=== PATIENT | male | born 1995 | race Caucasian/White ===

== ENCOUNTER 2022-12-22 11:43 | Outpatient (REF) | payer OTHER, SELFPAY ==
[2022-12-22 13:51] LABS: MANUAL DIFF FLAG NO
[2022-12-22 14:05] LABS: Basophils Percent Auto 0.5 % (0-2); Eosinophils Absolute Auto 0.2 X10*3/uL (0.0-0.4); Eosinophils Percent Auto 2.4 % (0-4); Hematocrit 50.2 % (42.0-52.0); Hemoglobin 16.5 g/dl (14.0-18.0); Imm Gran Abs Auto 0.02 X10*3/uL (0.00-0.03); Imm Gran Pct Auto 0.3 % (0.0-0.4); Lymphocytes Absolute Auto 1.5 X10*3/uL (1.2-4.9); Lymphocytes Percent Auto 23.3 % (20-40); Mean Corpuscular HGB Conc 32.9 g/dl (31.0-36.0); Mean Corpuscular Hemoglobin 28.2 pg (27.0-33.0); Mean Corpuscular Volume 85.7 fL (80.0-98.0); Mean Platelet Volume 8.7 fL (9.4-12.4); Monocytes Absolute Auto 0.5 X10*3/uL (0.1-1.2); Monocytes Percent Auto 7.3 % (2-11); Neutrophils Absolute Auto 4.2 x10*3/uL (2.0-8.3); Neutrophils Percent Auto 66.2 % (45-73); Platelet Count 297 X10*3/uL (160-400); Red Blood Count 5.86 X10*6/uL (4.60-5.80); Red Cell Distribution Width 12.2 % (11.0-16.0); White Blood Count 6.3 X10*3/uL (4.8-10.8)
[2022-12-22 14:08] LABS: Appearance Urine Clear; Color Urine Yellow; Glucose Urine UA Negative (Negative); Leukocyte Esterase Urine Negative (Negative); Nitrite Urine Negative (Negative); PH 6.5 (5.0-9.0); Urine Blood Negative (Negative); Urine Ketones Negative (Negative); Urine Protein Negative (Neg-Trace)
[2022-12-22 14:42] LABS: Alanine Aminotransferase 14 U/L (0-40); Albumin Level 4.5 g/dL (3.5-5.0); Alkaline Phosphatase 118 U/L (39-117); Anion Gap 13 (12-20); Aspartate Amino Transferase 16 U/L (5-37); Bilirubin Total 0.6 mg/dL (0.0-1.0); Blood Urea Nitrogen 13 mg/dL (9-16); Calcium 9.6 mg/dL (8.4-10.2); Carbon Dioxide 27 mmol/L (22-29); Chloride 106 mmol/L (96-108); Cholesterol 161 mg/dL; Estimated Glomerular Filt Rate > 60; Glucose Fasting 88 mg/dL (60-99); HDL Cholesterol 50 mg/dL; LDL Cholesterol Calculated 101 mg/dl; Potassium 4.8 mmol/L (3.3-5.1); Sodium 141 mmol/L (135-145); Total Protein 7.4 g/dL (6.5-8.0); Triglycerides 52 mg/dL
[2022-12-22 14:59] LABS: TSH reflex Free T4 0.14 uIU/mL (0.32-4.0)
[2022-12-22 15:40] LABS: Free T4 (Free Thyroxine) 0.93 ng/dL (0.71-1.85)
== END 2022-12-22 11:44 | disposition home or self-care (01) ==
LOC: HO.HMGCLDS 11:43
PROVIDERS: PCP Internal Medicine; Visit Provider Internal Medicine
DX: Z00.01 Encounter for general adult medical examination with abnormal findings (principal); F41.1 Generalized anxiety disorder; Z13.0 Encounter for screening for diseases of the blood and blood-forming organs and certain disorders involving the immune mechanism; Z13.29 Encounter for screening for other suspected endocrine disorder; Z83.49 Family history of other endocrine, nutritional and metabolic diseases
CPT/HCPCS: 36415; 80053; 80061; 81003; 84439; 84443; 85025

== ENCOUNTER 2023-01-19 12:29 | Outpatient (REF) | payer OTHER, SELFPAY ==
[2023-01-19 15:09] LABS: TSH reflex Free T4 0.37 uIU/mL (0.32-4.0)
[2023-01-26 08:32] LABS: Thyroglobulin Antibodies <1
== END 2023-01-19 12:30 | disposition home or self-care (01) ==
LOC: HO.HMGCLDS 12:29
PROVIDERS: PCP Internal Medicine; Visit Provider Internal Medicine
DX: R94.6 Abnormal results of thyroid function studies (principal)
CPT/HCPCS: 36415; 84443; 86800

== ENCOUNTER 2023-12-28 10:39 | Outpatient (AMB) | payer BC, SELFPAY ==
[2023-12-28 10:41] VITALS: BP 118/70; PULSE 68; O2SAT 98; BMI 26.3
--- NOTE | 2023-12-28 10:41 | A.OFFPC_ITS ---
Vital Signs 12/28/23 10:41 Height 5 ft 7 in Weight 168 lb 2 oz BMI 26.3 BP 118/70 Blood Pressure Location Lt brachial Position Sitting Pulse 68 Pulse Source Pulse Oximeter Pulse Oximetry (%) 98 Oxygen Delivery Method Room Air Intake Visit Reasons: PE Computer Equipment Installer Required: No Accompanied by: Self / Same As Patient Allergies No Known Allergies Allergy (Verified 12/28/23 10:41) Medication List - Last Reconciled 12/28/23 by Kellie Duenas MD alprazolam 0.25 mg PO DAILY PRN fluoxetine 20 mg PO DAILY Tobacco use date assessed: 12/28/23 Dental Screening Dental Screen Date: 12/28/23 Did you have a dental visit in the last 12 months?: Yes Did you have a dental problem in the last 6 months where you did not have access to dental care?: No Was dental information given to patient?: Patient has dentist HPI PE HPI Details Physical exam appointment anxiety management through Psychiatry Last year his labs showed elevated alkaline phosphatase New set of lab order placed Patient is also complaining of having rectal bleed off and on Does have constipation but not sure if he has hemorrhoids, at this point he does not have any problem I have placed a referral to Colorectal for proper diagnosis. Follow-up 1 year physical exam [facility] Medical History Depression Surgical History No pertinent past surgical history Family History Father Hypertension Maternal Grandmother Cancer Paternal Grandmother Depression Social History Housing: House Patient Tobacco Use Status: Never used Tobacco e-Cigarette/Vaping Use: Never Used Current occupational status: employed Current occupation: teacher, [employer] Current occupational exposures/hazards: No Cognitive needs: No Hearing needs: No Vision needs: No Questionnaire PHQ-9 Over the last 2 weeks, how often have you been bothered by any of the following problems? 1. Little interest or pleasure in doing things: several days 2. Feeling down, depressed, or hopeless: several days 3. Trouble falling or staying asleep, or sleeping too much: several days 4. Feeling tired or having little energy: more than half the days 5. Poor appetite or overeating: several days 6. Feeling bad about yourself - or that you are a failure or have let yourself or your family down: not at all 7. Trouble concentrating on things, such as reading the newspaper or watching television: several days 8. Moving or speaking so slowly that other people could have noticed. Or the opposite - being so fidgety or restless that you have been moving around a lot more than usual: not at all 9. Thoughts that you would be better off or of hurting yourself in some way: not at all Total score: 7 Depression Screening Interpretation: Negative Depression Screening Done: Yes 12400 - PHQ-9 Billing: Yes Source: Developed by Drs. Richie Cali, Karely Mclaughlin, Davon West and colleagues, with an educational veronica from [employer]. Thrive Questionnaire Date Thrive assessed: 12/28/23 I am a: Patient What is your living situation today?: I have a steady place to live Within the past 12 months, did the food you bought not last and you didn't have the money to get more?: Never true Within the past 12 months, did you worry whether your food would run out before you got money to buy more?: Never true Do you have trouble paying for medicines?: No Do you have trouble getting transportation to medical appointments?: No Do you have trouble paying your heating and electricity bill?: No Do you have trouble taking care of your child, family member or friend?: No Do you have trouble with day-to-day activities such as bathing, preparing meals, shopping, managing finances, etc.?: No Are you currently unemployed and looking for a job?: No Are you interested in more education?: No Please select the resources that you would like help with: None Currently or been in a relationship where the following occur: no concerns reported THRIVE Score: 0 AUDIT C Alcohol Use Questionnaire (AUDIT-C) 1. How often do you have a drink containing alcohol?: 2-4 times a month 2. How many drinks containing alcohol do you have on a typical day when you are drinking?: 3 or 4 3. How often do you have six or more drinks on one occasion?: Never Total Score: 3 Score Reviewed/Action Taken: Yes DARIANA-7 AMB Questionnaire DARIANA-7 Date DARIANA - 7 assessed: 12/28/23 Feeling nervous, anxious, or on edge: 1 = Several days Not being able to stop or control worryin = Several days Worrying too much about different things: 1 = Several days Trouble relaxin = Several days Being so restless that it is hard to sit still: 1 = Several days Becoming easily annoyed or irritable: 0 = Not at all Feeling afraid as if something awful might happen: 0 = Not at all Total DARIANA-7 score (0-4 normal; 5-9 mild; 10-14 moderate; 15-21 severe): 5 Source: Developed by Drs. Richie Cali, Karely Mclaughlin, Davon West and colleagues, with an educational veronica from [employer]. DARIANA-7 Assessment Billing DARIANA-7 Assessment Tool: DARIANA-7 Assessment 07218 Review of Systems Const Denies chills, Denies fever(s) and Denies headache(s) Eyes Denies blurry vision ENT Denies headache(s), Denies nasal discharge, Denies nasal obstruction, Denies odynophagia and Denies sinus pain Card Denies chest pain at rest and Denies chest pain with activity Resp Denies cough and Denies hemoptysis GI Denies diarrhea, Denies odynophagia, Denies vomiting and Denies hematemesis Reports as per HPI Musc Denies abnormal gait Skin/Breast Reports as per HPI Neuro Denies Neuro-related abnormal movements, Denies Abnormal speech present, Denies abnormal gait, Denies headache(s) and Denies Sensory deficit (Neuro) Psych Denies mood swings and Denies paranoia Endo Reports as per HPI Rai/Lymph Reports as per HPI Aller/Immun Reports as per HPI Physical exam (Primary Care) Vital Signs: Last Vital Signs Pulse 68 12/28/23 10:41 BP 118/70 12/28/23 10:41 Pulse Ox 98 12/28/23 10:41 Oxygen Delivery Method Room Air 12/28/23 10:41 BMI result Body Mass Index 26.3 Tobacco/Smoking Status: Tobacco use Status Tobacco use date assessed 12/28/23 12/28/23 10:46 Patient Tobacco Use Status Never used Tobacco 12/28/23 10:46 e-Cigarette/Vaping Use Never Used 12/28/23 10:46 PHQ-9: PHQ-9 Score PHQ-9: Total score 7 12/28/23 10:58 Depression Screening Interpretation: Negative Thrive Assessment: Date of Thrive Assessment Date Thrive assessed 12/28/23 12/28/23 10:46 Currently or been in a relationship where the following occur: no concerns reported Const General: cooperative, comfortable and no acute distress Orientation/consciousness: patient oriented x3 HENMT Head: Yes normocephalic and Yes atraumatic Eyes General: appearance normal, both eyes and all related structures Pupils: Equal, round and reactive pupils present EOM: EOMs intact bilaterally Neck Neck: Yes supple and No lymphadenopathy Thyroid: Thyroid normal Lymphatic: no lymphadenopathy noted Resp Effort & Inspection: normal respiratory effort and able to speak in complete sentences Auscultation: clear to auscultation bilaterally Cardio Heart sounds: S1 normal heart sound present and S2 normal heart sound present GI Palpation (GI): Soft to palpation and nontender Auscultation: normal bowel sounds General: Yes no CVA tenderness Back/Spine/Pelvis Back: no CVA tenderness Skin General skin exam: elasticity normal and turgor normal Neuro General: patient oriented x3 and gait normal Cranial nerves: Yes Equal, round and reactive pupils present Speech: No Abnormal speech present Sensory Exam: No Sensory deficit (Neuro) Coordination: tandem gait normal and Romberg test negative Extrem General: Yes normal exam except as noted and No edema Assessment and Plan Assessment & Plan (1) Encounter for general adult medical examination with abnormal findings: Code(s): Z00.01 - Encounter for general adult medical examination with abnormal findings (2) Rectal bleed: Code(s): K62.5 - Hemorrhage of anus and rectum (3) Anxiety, generalized: Code(s): F41.1 - Generalized anxiety disorder (4) LFT elevation: Code(s): R79.89 - Other specified abnormal findings of blood chemistry Plan Physical exam appointment anxiety management through Psychiatry Last year his labs showed elevated alkaline phosphatase New set of lab order placed Patient is also complaining of having rectal bleed off and on Does have constipation but not sure if he has hemorrhoids, at this point he does not have any problem I have placed a referral to Colorectal for proper diagnosis. Follow-up 1 year physical exam Orders: Orders Complete Blood Count Auto Diff Today F41.1 - Generalized anxiety disorder, R79.89 - Other specified abnormal findings of blood chemistry, Z00.01 - Encounter for general adult medical examination with abnormal findings Comprehensive Met. Panel Today F41.1 - Generalized anxiety disorder, R79.89 - Other specified abnormal findings of blood chemistry, Z00.01 - Encounter for general adult medical examination with abnormal findings TSH reflex Free T4 Today F41.1 - Generalized anxiety disorder, R79.89 - Other specified abnormal findings of blood chemistry, Z00.01 - Encounter for general adult medical examination with abnormal findings Referrals Colon & Rectal Referral K62.5 - Hemorrhage of anus and rectum Coding Level of Care Code Est Pt Prev Care 18-39y(04118) Diagnoses Encounter for general adult medical examination with abnormal findings Z00.01 Rectal bleed K62.5 Anxiety, generalized F41.1 LFT elevation R79.89 Additional Codes DARIANA-7 Assessment Billing - DARIANA-7 Assessment Tool: DARIANA-7 Assessment 76991 ([id number])
== END 2023-12-28 10:58 | disposition home or self-care (01) ==
PROVIDERS: PCP Internal Medicine; Visit Provider Internal Medicine
DX: Z00.00 Encounter for general adult medical examination without abnormal findings (principal); K62.5 Hemorrhage of anus and rectum; F41.1 Generalized anxiety disorder; R79.89 Other specified abnormal findings of blood chemistry
CPT/HCPCS: 99395

== ENCOUNTER 2023-12-28 10:59 | Outpatient (REF) | payer BC, SELFPAY ==
[2023-12-28 13:44] LABS: MANUAL DIFF FLAG NO
[2023-12-28 14:02] LABS: Basophils Percent Auto 0.6 % (0-2); Eosinophils Absolute Auto 0.2 X10*3/uL (0.0-0.4); Eosinophils Percent Auto 3.6 % (0-4); Hematocrit 48.2 % (42.0-52.0); Hemoglobin 16.3 g/dl (14.0-18.0); Imm Gran Abs Auto 0.01 X10*3/uL (0.00-0.03); Imm Gran Pct Auto 0.2 % (0.0-0.4); Lymphocytes Absolute Auto 1.6 X10*3/uL (1.2-4.9); Lymphocytes Percent Auto 30.7 % (20-40); Mean Corpuscular HGB Conc 33.8 g/dl (31.0-36.0); Mean Corpuscular Hemoglobin 29.2 pg (27.0-33.0); Mean Corpuscular Volume 86.2 fL (80.0-98.0); Mean Platelet Volume 8.7 fL (9.4-12.4); Monocytes Absolute Auto 0.5 X10*3/uL (0.1-1.2); Monocytes Percent Auto 10.1 % (2-11); Neutrophils Absolute Auto 2.9 x10*3/uL (2.0-8.3); Neutrophils Percent Auto 54.8 % (45-73); Platelet Count 270 X10*3/uL (160-400); Red Blood Count 5.59 X10*6/uL (4.60-5.80); White Blood Count 5.2 X10*3/uL (4.8-10.8)
[2023-12-28 16:37] LABS: Alanine Aminotransferase 29 U/L (0-40); Albumin Level 4.7 g/dL (3.5-5.0); Alkaline Phosphatase 106 U/L (39-117); Anion Gap 12 (12-20); Aspartate Amino Transferase 24 U/L (5-37); Bilirubin Total 0.7 mg/dL (0.0-1.0); Blood Urea Nitrogen 17 mg/dL (9-16); Calcium 9.4 mg/dL (8.4-10.2); Carbon Dioxide 25 mmol/L (22-29); Chloride 107 mmol/L (96-108); Estimated Glomerular Filt Rate > 60; Glucose Random 87 mg/dL (60-115); Potassium 4.1 mmol/L (3.3-5.1); Sodium 140 mmol/L (135-145); Total Protein 7.7 g/dL (6.5-8.0)
[2023-12-28 16:42] LABS: TSH reflex Free T4 0.44 uIU/mL (0.32-4.0)
== END 2023-12-28 11:00 | disposition home or self-care (01) ==
LOC: HO.HMGCLDS 10:59
PROVIDERS: PCP Internal Medicine; Visit Provider Internal Medicine
DX: Z00.01 Encounter for general adult medical examination with abnormal findings (principal); F41.1 Generalized anxiety disorder; R79.89 Other specified abnormal findings of blood chemistry
CPT/HCPCS: 36415; 80053; 84443; 85025

== ENCOUNTER 2024-04-17 15:32 | Outpatient (AMB) | payer BC, SELFPAY ==
--- NOTE | 2024-04-17 15:34 | MHC.OFFVIS ---
Vital Signs 04/17/24 15:35 Height 5 ft 7 in Weight 165 lb 5.547 oz BMI 25.9 BP 99/62 Blood Pressure Location Lt brachial Position Sitting Pulse 65 Intake Visit Reasons: hemorrhage of anus and rectum Intake Note: Dima presents in the office as a new patient for hemorrhage of anus and rectum. CC: He states that he was having blood in his stool - was told it could be hemorrhoids. Little bit of both constipation and diarrhea. He states that he cannot remember the last time that it happened and he is not actively bleeding. He does not notice any pains in the rectum. 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 Patient has been experiencing on and off rectal bleed. Patient reports that it happens sometimes even when he does not have a bowel movement. On and off between constipation and diarrhea. Patient however was told that in the past he had hemorrhoids. No known family history of CRC. Patient denies dyspepsia, dysphagia or odynophagia. Denies any cardiac or respiratory symptoms. No issues with anesthesia in the past. No history of sleep apnea. Denies any infectious diseases in the past or present. [facility] Medical History Depression Surgical History No pertinent past surgical history Family History Father Hypertension Maternal Grandmother Cancer Paternal Grandmother Depression Social History Housing: House Patient Tobacco Use Status: Never used Tobacco e-Cigarette/Vaping Use: Never Used Current occupational status: employed Current occupation: teacher, [email or web address] Current occupational exposures/hazards: No Cognitive needs: No Hearing needs: No Vision needs: No Review of Systems Const Denies weight gain and Denies weight loss ENT Reports no additional complaints, Denies dysphagia and Denies odynophagia Card Reports no additional complaints Resp Reports no additional complaints GI Denies abdominal pain, Denies belching, Denies melena, Denies bloating, Reports hematochezia (On and off), Reports constipation, Denies dysphagia, Denies excessive flatus, Denies dyspepsia, Denies heartburn, Denies diarrhea, Reports loose stools, Denies nausea, Denies odynophagia and Denies vomiting Reports no additional complaints Musc Reports no additional complaints Neuro Reports no additional complaints Psych Reports no additional complaints Endo Reports no additional complaints Physical Exam Vital Signs: Last Vital Signs Pulse 65 04/17/24 15:35 BP 99/62 04/17/24 15:35 BMI result Body Mass Index 25.9 Const General: healthy appearing, no acute distress and well developed Nutritional Appearance: well nourished Orientation/consciousness: patient oriented x3 Resp Effort & Inspection: normal respiratory effort, able to speak in complete sentences, no tracheal deviation and symmetric chest movement Auscultation: clear to auscultation bilaterally Cardio Rate: regular rate GI Inspection: Yes normal to inspection and No distended Palpation (GI): Soft to palpation, not firm, nontender and No hepatosplenomegaly present Auscultation: normal bowel sounds General: Yes no CVA tenderness Back/Spine/Pelvis Back: no CVA tenderness Skin General skin exam: elasticity normal, turgor normal and dry skin Neuro General: patient oriented x3 Psych Appearance: grossly normal Mental Status: mental status grossly normal Assessment & Plan Assessment & Plan (1) Rectal bleed: Code(s): K62.5 - Hemorrhage of anus and rectum Category: Medical (2) Diarrhea: Code(s): R19.7 - Diarrhea, unspecified Qualifiers: Diarrhea type: functional diarrhea Qualified Code(s): K59.1 - Functional diarrhea Plan Will send patient for colonoscopy. On and off rectal bleed sometimes not related to bowels. Bowel movements between constipation and diarrhea. Patient was encouraged to increase fiber, however no fiber before colonoscopy for 3-5 days. No family history of CRC. No issues with anesthesia in the past. Not on any anticoagulation medication. No history of sleep apnea. Patient will be seen after the procedure, sooner on as needed basis. He is agreeable to this plan and verbalizes understanding of instructions. He was given the opportunity to ask questions and all questions answered. Thank you for allowing me to participate in his care Medications: New bisacodyl (Dulcolax (bisacodyl)) take 4 tabs at noon the day before your colonoscopy 20 mg (4 x 5 mg) PO ONCE 1 day 4 tabs 0RF Z12.11 - Encounter for screening for malignant neoplasm of colon polyethylene glycol 3350 (Miralax) As directed by gastroenterology department at [facility] 238 grams PO ONCE 238 grams 0RF Z12.11 - Encounter for screening for malignant neoplasm of colon Coding Level of Care Code New Pt Level 3 (77758) Diagnoses Rectal bleed K62.5 Functional diarrhea K59.1 Diarrhea type: functional diarrhea Time Spent (min) 40 Comment 30 minutes spent with patient and additional 10 minutes spent reviewing his records
[2024-04-17 15:35] VITALS: BP 99/62; PULSE 65; BMI 25.9
== END 2024-04-17 16:08 | disposition home or self-care (01) ==
PROVIDERS: PCP Internal Medicine; Visit Provider Nurse Practitioner Family
DX: K62.5 Hemorrhage of anus and rectum (principal); K59.1 Functional diarrhea
CPT/HCPCS: 99203

== ENCOUNTER → 2024-04-17 15:32 | Outpatient (BNVA) | payer BC, SELFPAY | PROVIDERS: PCP Internal Medicine; Visit Provider Nurse Practitioner Family ==

== ENCOUNTER 2024-04-25 10:57 | Day surgery (SDC) | payer BC, SELFPAY ==
--- NOTE | 2024-04-24 13:16 | HO.ANESPROP2 ---
Documented by User: Arlene Norton NP 04/24/24 13:17 HPI - Anesthesia Eval Consult details Narrative: 29yo M for Colonoscopy PMFSH Active Problems Active Problems: All Active Problems Rectal bleed (Acute) LFT elevation (Acute) Low TSH level (Acute) Migraine headache without aura (Acute) Contact dermatitis (Acute) Acne (Acute) Anxiety, generalized (Acute) Encounter for general adult medical examination with abnormal findings (Acute) Past Medical History Medical History Depression Family History Family History Father Hypertension Maternal Grandmother Cancer Paternal Grandmother Depression Surgical History Surgical History No pertinent past surgical history Social History Social History Housing: House Patient Tobacco Use Status: Never used Tobacco e-Cigarette/Vaping Use: Never Used Are you DNR?: No Advance Directives: No Advance Directives Information Provided: Yes Nutrition Risks: No Nutritional Risk Current occupational status: employed Current occupation: teacher, [employer] Current occupational exposures/hazards: No Cognitive needs: No Hearing needs: No Vision needs: No Meds Allergies Allergy/AdvReac Type Severity Reaction Status Date / Time No Known Allergies Allergy Verified 12/28/23 10:41 Home Medications ?Medication ?Instructions ?Recorded ?Confirmed ?Last Taken ?Type alprazolam 0.25 mg tablet 0.25 mg PO DAILY PRN anxiety 12/22/22 12/28/23 Unknown History fluoxetine 40 mg capsule 40 mg PO DAILY 04/17/24 Unknown History Exam Pertinent Lab Results Pertinent Lab Results: Laboratory Tests 12/28/23 11:02 WBC 5.2 Hgb 16.3 Hct 48.2 Plt Count 270 Sodium 140 Potassium 4.1 Chloride 107 Carbon Dioxide 25 BUN 17 H Creatinine 0.83 Assessment and Plan Assessment Anesthesia Assessment: Chart Reviewed Documented by User: Agata Honeycutt MD 04/25/24 13:42 PMFSH Past Medical History Medical History Depression Family History Family History Father Hypertension Maternal Grandmother Cancer Paternal Grandmother Depression Family history of problems with anesthesia: No Surgical History Surgical History No pertinent past surgical history History of Problems with Anesthesia: No Social History Social History Housing: House Patient Tobacco Use Status: Never used Tobacco e-Cigarette/Vaping Use: Never Used Are you DNR?: No Advance Directives: No Advance Directives Information Provided: Yes Nutrition Risks: No Nutritional Risk Current occupational status: employed Current occupation: teacher, [employer] Current occupational exposures/hazards: No Cognitive needs: No Hearing needs: No Vision needs: No Meds Allergies Allergy/AdvReac Type Severity Reaction Status Date / Time No Known Allergies Allergy Verified 12/28/23 10:41 Home Medications ?Medication ?Instructions ?Recorded ?Confirmed ?Last Taken ?Type alprazolam 0.25 mg tablet 0.25 mg PO DAILY PRN anxiety 12/22/22 12/28/23 Unknown History fluoxetine 40 mg capsule 40 mg PO DAILY 04/17/24 Unknown History Exam Airway Mallampati Class: II TM Dist: >3cm Neck ROM: Full Heart: rrr Lungs: cta Assessment and Plan Assessment Anesthesia Assessment: Anesthesia Plan Discussed Final Anesthetic Review Family History of Problems with Anesthesia: No History of Problems with Anesthesia: No NPO: Yes ASA Class: II Final Preanesthetic Review: No Changes in Pt Med Stat, Meds/Allgs Chart Reviewed, Consent Obtained/Reviewed and Anes Risks/Benef Reviewed Patient Risk: Intermediate Procedure Risk: Low Anesthetic Plan Anesthetic Plan: MAC: Disposition: Standard PACU
[2024-04-25 11:50] VITALS: BP 126/64; PULSE 70; RESP 20; TEMP 36.1; O2SAT 97; BMI 25.3
[2024-04-25] MEDS: Lactated Ringers 1,000 ML 100 ML IVCONT (12:02)
--- NOTE | 2024-04-25 14:31 | MHC.SHP ---
Pre-Procedural Eval Section A - 24 Hr Update-Section A only Date of Service: 04/25/24 Section B - Complete if H&P > 30 days Chief Complaint: Hemorrhage of anus and rectum Relevant Family History (Specify if Yes): No Relevant Social History: Other (specify) (occ THC use) Present Medications: see Short Stay Collaborative assessment Medical History: Significant History (depression ) History of Previous Operations: No relevant previous surgery Allergies: Allergies Allergy/AdvReac Type Severity Reaction Status Date / Time No Known Allergies Allergy Verified 12/28/23 10:41 Review of Systems Sugical H&P ROS: Negative: Constitution, Cardiovascular, Respiratory, Neurological, Psychiatric, Hem-Onc, Allergic/Immunologic, Gastrointestinal, Genitourinary, Musculoskeletal, Integumentary, Endocrine and Eyes/Ears/Nose/Throat Exam Surgical H&P Exam: Normal: HEENT, Normal: Heart, Normal: Lungs, Normal: Extremities, Normal: Abdomen, Normal: Skin and Normal: Neurological Plan Diagnosis/Plan: Unchanged I have reviewed the history and physical and performed a pertinent physical examination on my patient. No changes have occurred unless specified. Time Spent With Patient Time: Total time managing care of this patient today ____ minutes.
--- NOTE | 2024-04-25 15:13 | P.OPN-COLO_ITS ---
Colonoscopy Operative Note Operative Note Date of Service: 04/25/24 Narrative: Operative Information Procedure Description: Colonoscopy Indication: rectal bleeding Anesthesia: MAC COLONOSCOPY Instrument: Olympus variable stiffness pediatric scope 190L Colonoscopy Monitoring: Vital signs and clinical assessment, continuous EKG monitoring, Pulse oximetry, Carbon Dioxide monitoring and blood pressure monitoring were done throughout the procedure. Colon withdrawal time was 10 minutes. Procedure: The patient was placed in the left lateral decubitis position and pre-procedure medications were administered. After a digital rectal examination of the ano-rectum, the video colonoscope was inserted into the rectum and advanced through the colon to the cecum/TI. The colonoscope was slowly withdrawn in a retrograde panoramic fashion and the colon mucosa was carefully examined including a retroflexed view of the rectum. Findings and interventions are described below. Procedure Difficulty: easy Findings: Terminal Ileum-normal Cecum: 4-6 mm sessile polyp removed with cold forceps Ascending Colon: normal Transverse Colon -normal Descending Colon:normal Sigmoid Colon: normal Rectum: Retroflexion with small internal hemorrhoids seen, grade I Anorectum - normal Intervention: cold forceps Colon preparation: [place] Bowel Preparation Scale Right colon; 2 Transverse colon: 3 Left colon; 3 (0 = Unprepared colon segment with mucosa not seen due to solid stool that cannot be cleared. 1 = Portion of mucosa of the colon segment seen, but other areas of the colon segment not well seen due to staining, residual stool and/or opaque liquid. 2 = Minor amount of residual staining, small fragments of stool and/or opaque liquid, but mucosa of colon segment seen well. 3 = Entire mucosa of colon segment seen well with no residual staining, small fragments of stool or opaque liquid) Impression and Post Procedure Diagnosis: colon polyp internal hemorrhoids Plan: High fiber diet leaflet Avoid straining at stool, epsom salts and sitz bath, anusol supps or cream Repeat Colonoscopy in 5-7 years if adenomatous polyp, otherwise next screening age 45 or earlier if clinically indicated Above findings were reviewed with the patient and relevant handouts were provided if indicated.
[2024-04-25 15:14] VITALS: BP 114/58; PULSE 83; RESP 16; TEMP 36.3; O2SAT 97
[2024-04-25 15:29] VITALS: BP 102/53; PULSE 76; RESP 16; TEMP 36.3; O2SAT 97
[2024-04-25 15:44] VITALS: BP 111/55; PULSE 74; RESP 16; TEMP 36.3; O2SAT 98
== END 2024-04-25 15:59 | disposition home or self-care (01) ==
PROVIDERS: PCP Internal Medicine; Visit Provider Internal Medicine Gastroenterology
PROC: 0DJD8ZZ Inspection of Lower Intestinal Tract, Via Natural or Artificial Opening Endoscopic (ICD-10-PCS; CPT 45378; principal; 2024-04-25 15:50)
DX: K62.5 Hemorrhage of anus and rectum (principal); K63.5 Polyp of colon; K64.0 First degree hemorrhoids; F32.A Depression, unspecified; Z79.899 Other long term (current) drug therapy
CPT/HCPCS: 45380; 88305; J2250; J2704

== ENCOUNTER → 2024-04-25 10:57 | Outpatient (BNV) | payer BC, SELFPAY | PROVIDERS: PCP Internal Medicine; Visit Provider Internal Medicine Gastroenterology | DX: K62.5 Hemorrhage of anus and rectum (principal); K63.5 Polyp of colon; K64.0 First degree hemorrhoids | CPT/HCPCS: 45380 ==

== ENCOUNTER 2024-06-29 08:27 | Outpatient (AMB) | payer OTHER, SELFPAY ==
--- NOTE | 2024-06-29 08:32 | MHC.PC.OV ---
Intake Visit Reasons: Med Review Allergies No Known Allergies Allergy (Verified 06/29/24 08:32) Medication List - Last Reconciled 06/29/24 by Kellie Duenas MD alprazolam 0.25 mg PO DAILY PRN fluoxetine 40 mg PO DAILY Tobacco use date assessed: 06/29/24 Dental Screening Dental Screen Date: 06/29/24 Did you have a dental visit in the last 12 months?: Yes Did you have a dental problem in the last 6 months where you did not have access to dental care?: No Was dental information given to patient?: Patient has dentist HPI Med Review HPI Details Patient is 29-year-old gentleman with a history of anxiety He has been seeing psychiatrist , however last visit has been more than a year So medication was stopped He is requesting a refill of medication until he has appointment with them He is currently taking fluoxetine 40 mg and Xanax only as needed Patient has been taking same medication for the past 2 years and is doing well Medications filled [facility] Medical History Depression Surgical History No pertinent past surgical history Family History Father Hypertension Maternal Grandmother Cancer Paternal Grandmother Depression Social History Housing: House Patient Tobacco Use Status: Never used Tobacco e-Cigarette/Vaping Use: Never Used Current occupational status: employed Current occupation: teacher, [employer] Current occupational exposures/hazards: No Cognitive needs: No Hearing needs: No Vision needs: No Questionnaire PHQ-9 Over the last 2 weeks, how often have you been bothered by any of the following problems? 1. Little interest or pleasure in doing things: several days 2. Feeling down, depressed, or hopeless: several days 3. Trouble falling or staying asleep, or sleeping too much: several days 4. Feeling tired or having little energy: not at all 5. Poor appetite or overeating: several days 6. Feeling bad about yourself - or that you are a failure or have let yourself or your family down: not at all 7. Trouble concentrating on things, such as reading the newspaper or watching television: several days 8. Moving or speaking so slowly that other people could have noticed. Or the opposite - being so fidgety or restless that you have been moving around a lot more than usual: not at all 9. Thoughts that you would be better off or of hurting yourself in some way: not at all Total score: 5 Depression Screening Interpretation: Negative Depression Screening Done: Yes 45578 - PHQ-9 Billing: Yes Source: Developed by Drs. Richie Cali, Davon Jarquin and colleagues, with an educational veronica from [employer]. Thrive Questionnaire Date Thrive assessed: 12/28/23 AUDIT C Alcohol Use Questionnaire (AUDIT-C) 1. How often do you have a drink containing alcohol?: 2-4 times a month 2. How many drinks containing alcohol do you have on a typical day when you are drinking?: 3 or 4 3. How often do you have six or more drinks on one occasion?: Never Total Score: 3 Score Reviewed/Action Taken: Yes DARIANA-7 AMB Questionnaire DARIANA-7 Date DARIANA - 7 assessed: 12/28/23 Source: Developed by Drs. Richie Cali, Karely Mclaughlin, Davon West and colleagues, with an educational veronica from [employer]. Review of Systems Const Denies chills and Denies fever(s) ENT Denies epistaxis and Denies nasal discharge Card Denies chest pain Resp Denies chest congestion, Denies cough and Denies hemoptysis GI Denies diarrhea and Denies nausea Skin/Breast Denies rash Neuro Reports no additional complaints Psych Reports no additional complaints Endo Reports no additional complaints Physical exam (Primary Care) Tobacco/Smoking Status: Tobacco use Status Tobacco use date assessed 06/29/24 06/29/24 08:33 Patient Tobacco Use Status Never used Tobacco 06/29/24 08:33 e-Cigarette/Vaping Use Never Used 06/29/24 08:33 PHQ-9: PHQ-9 Score PHQ-9: Total score 5 06/29/24 19:59 Depression Screening Interpretation: Negative Thrive Assessment: Date of Thrive Assessment Date Thrive assessed 12/28/23 06/29/24 08:33 Telehealth Telehealth Telehealth Platform: [facility] Location of provider rendering services: practice address Location of patient: address on file Patient Identification confirmed using: Name, : Yes Telehealth method: voice only Patient verbally consented to treatment: Yes Patient verbally consented to billing insurance company: Yes Patient informed of any privacy concerns related to visit: Yes Minutes spent on Phone/Video with Pt.: 13 Coding Level of Care Code Tele Est Pt Level 3 (05839) Diagnoses Anxiety, generalized F41.1 Assessment & Plan Assessment & Plan (1) Anxiety, generalized: Code(s): F41.1 - Generalized anxiety disorder Category: Medical Plan Patient is 29-year-old gentleman with a history of anxiety He has been seeing psychiatrist , however last visit has been more than a year So medication was stopped He is requesting a refill of medication until he has appointment with them He is currently taking fluoxetine 40 mg and Xanax only as needed Patient has been taking same medication for the past 2 years and is doing well Medications filled Medications: New alprazolam 0.25 mg PO DAILY PRN 30 tabs 0RF anxiety fluoxetine 40 mg PO DAILY 90 caps 0RF
== END 2024-06-29 09:52 | disposition home or self-care (01) ==
PROVIDERS: PCP Internal Medicine; Visit Provider Internal Medicine
DX: F41.1 Generalized anxiety disorder (principal)

== ENCOUNTER → 2024-06-29 08:27 | Outpatient (BNVA) | payer SELFPAY | PROVIDERS: PCP Internal Medicine; Visit Provider Internal Medicine ==

== ENCOUNTER 2024-10-27 08:06 | Outpatient (AMB) | payer OTHER, SELFPAY ==
[2024-10-27 08:10] VITALS: BP 118/70; PULSE 81; TEMP 36.7; O2SAT 98; BMI 23.6
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
== END 2024-10-27 10:24 | disposition home or self-care (01) ==
PROVIDERS: PCP Internal Medicine; Visit Provider Internal Medicine
DX: J06.9 Acute upper respiratory infection, unspecified (principal); F41.1 Generalized anxiety disorder

== ENCOUNTER → 2024-10-27 08:06 | Outpatient (BNVA) | payer OTHER, SELFPAY | PROVIDERS: PCP Internal Medicine; Visit Provider Internal Medicine | DX: J06.9 Acute upper respiratory infection, unspecified (principal); F41.1 Generalized anxiety disorder | CPT/HCPCS: 96127 ==

== ENCOUNTER 2025-01-02 12:28 | Outpatient (AMB) | payer OTHER, SELFPAY ==
--- NOTE | 2025-01-02 12:40 | MHC.PC.OV ---
Vital Signs 01/02/25 12:43 Height 5 ft 7 in Weight 145 lb BMI 22.7 BP 94/60 Blood Pressure Location Rt brachial Position Sitting Respiration 15 Pulse 83 Pulse Source Pulse Oximeter Temp 98.1 F Temp Source Oral Pulse Oximetry (%) 98 Oxygen Delivery Method Room Air Intake Visit Reasons: PE Allergies No Known Allergies Allergy (Verified 01/02/25 12:40) Medication List - Last Reconciled 01/02/25 by Kellie Duenas MD alprazolam 0.25 mg PO DAILY PRN fluoxetine 40 mg PO DAILY Tobacco use date assessed: 01/02/25 Dental Screening Dental Screen Date: 01/02/25 Did you have a dental visit in the last 12 months?: No Did you have a dental problem in the last 6 months where you did not have access to dental care?: No Was dental information given to patient?: Patient has dentist HPI PE HPI Details History of Present Illness - The patient is a 29-year-old male presenting for an annual wellness examination. - He reports feeling much better compared to his last visit and notes that he has not been ill recently. - He is currently on fluoxetine and alprazolam and has been taking these medications consistently. Through Psychiatry - He had laboratory tests performed in December last year, which returned normal results. - The patient occasionally experiences constipation, though it is not described as a major issue. - has 2 skin tag right side of scalp which causes problem coming here however patient says that it is not an issue at this time - due for tetanus vaccine - lab order placed to be done fasting Health Maintenance - Scheduled laboratories, with fasting instructions, to monitor medication effects on liver and kidney function. - Review of immunization history revealed the patient is due for a tetanus vaccine, which was last administered in 2008. 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 - He plays drums and sings as part of his musical expertise. Patient Instructions - Complete fasting labs as discussed; no eating for 10 hours before the test. - Clinics open weekends for lab tests, but not on Sundays. - tetanus booster given Review of Systems - General: No fever no chills - Neurological: No headaches no dizziness - Ear nose throat: No sore throat no hearing difficulty no ear pain - Cardiovascular: No syncope, no chest pain, no palpitations - Gastrointestinal: No nausea vomiting or diarrhea - Endocrine: No polyuria polydipsia no heat intolerance - Genitourinary: No dysuria - Skin: No new complaints Physical Exam General: Cooperative, healthy appearing, comfortable, no acute distress Orientation: Patient oriented x3 Limitations: None Head: Normal to inspection, presence of skin tags on the back of the head Ears: Within normal limit visually Nose: Normal external nose present Face and sinus: Normal facial exam Eyes: Appearance normal, extraocular movement intact pupils reactive Neck: Normal visual inspection and supple Respiratory: Normal respiratory effort and able to speak in complete sentences. Clear to auscultation, no stridor Cardiovascular: S1 and S2 RRR GI: Normal to inspection. Soft to palpation and nontender, occasional constipation noted Skin: Turgor normal, presence of skin tags right side of scalp to, Neuro: Patient oriented x3, motor sensory intact, balance intact, tandem pass Extremities: Normal to inspection [facility] Medical History Depression Surgical History No pertinent past surgical history Family History Father Hypertension Substance use disorder Mental health disorder Maternal Grandmother Cancer Substance use disorder Paternal Grandmother Depression Mental health disorder Maternal Aunt Substance use disorder Social History Housing: House Patient Tobacco Use Status: Never used Tobacco e-Cigarette/Vaping Use: Never Used service: No Current occupational status: employed Current occupation: teacher, [employer] Current occupational exposures/hazards: No Cognitive needs: No Hearing needs: No Vision needs: No Questionnaire Thrive Questionnaire Date Thrive assessed: 10/27/24 I am a: Patient What is your living situation today?: I have a steady place to live Within the past 12 months, did the food you bought not last and you didn't have the money to get more?: Never true Within the past 12 months, did you worry whether your food would run out before you got money to buy more?: Never true Do you have trouble paying for medicines?: No Do you have trouble getting transportation to medical appointments?: No Do you have trouble paying your heating and electricity bill?: No Do you have trouble taking care of your child, family member or friend?: No Do you have trouble with day-to-day activities such as bathing, preparing meals, shopping, managing finances, etc.?: No Are you currently unemployed and looking for a job?: No Are you interested in more education?: No Please select the resources that you would like help with: None THRIVE Score: 0 DARIANA-7 AMB Questionnaire DARIANA-7 Date DARIANA - 7 assessed: 10/27/24 Source: Developed by Drs. Richie Cali, Karely Mclaughlin, Davon West and colleagues, with an educational veronica from [employer]. Physical exam (Primary Care) Vital Signs: Last Vital Signs Temp 98.1 F 01/02/25 12:43 Pulse 83 01/02/25 12:43 Resp 15 01/02/25 12:43 BP 94/60 01/02/25 12:43 Pulse Ox 98 01/02/25 12:43 Oxygen Delivery Method Room Air 01/02/25 12:43 BMI result Body Mass Index 22.7 Tobacco/Smoking Status: Tobacco use Status Tobacco use date assessed 01/02/25 01/02/25 12:42 Patient Tobacco Use Status Never used Tobacco 01/02/25 12:42 e-Cigarette/Vaping Use Never Used 01/02/25 12:42 Thrive Assessment: Date of Thrive Assessment Date Thrive assessed 10/27/24 01/02/25 12:42 Immunizations Boostrix Tdap 2.5 Lf unit-8 mcg-5 Lf/0.5 mL intramuscular syringe Performing Provider: Kellie Duenas MD Performing Location: [facility] Administered by: ADDISON Cabral on 01/02/25 13:03 Dose Route Admin Location Dispensed Lot Number Expiration Date [facility] Administrative Support Specialist 0.5 mL IM Left Deltoid 0.5 mL [id number] 03/23/27 [id number] [employer] VIS Given Date VIS Provided VIS Publication Date 01/02/25 Single Vaccine 21 Eligibility Eligibility Date Funding Source Not [facility] Eligible 01/02/25 Private Coding Level of Care Code Est Pt Level 3 (14705) Est Pt Prev Care 18-39y(12474) Diagnoses Encounter for general adult medical examination with abnormal findings Z00.01 Immunizations incomplete Z28.39 Anxiety, generalized F41.1 Acne L70.9 Migraine headache without aura G43.009 Assessment & Plan Assessment & Plan (1) Encounter for general adult medical examination with abnormal findings: Code(s): Z00.01 - Encounter for general adult medical examination with abnormal findings Category: Medical (2) Immunizations incomplete: Code(s): Z28.39 - Other underimmunization status Category: Medical (3) Anxiety, generalized: Code(s): F41.1 - Generalized anxiety disorder Category: Medical (4) Acne: Code(s): L70.9 - Acne, unspecified Category: Medical (5) Migraine headache without aura: Code(s): G43.009 - Migraine without aura, not intractable, without status migrainosus Category: Medical Plan History of Present Illness - The patient is a 29-year-old male presenting for an annual wellness examination. - He reports feeling much better compared to his last visit and notes that he has not been ill recently. - He is currently on fluoxetine and alprazolam and has been taking these medications consistently. Through Psychiatry - He had laboratory tests performed in December last year, which returned normal results. - The patient occasionally experiences constipation, though it is not described as a major issue. - has 2 skin tag right side of scalp which causes problem coming here however patient says that it is not an issue at this time - due for tetanus vaccine - lab order placed to be done fasting Health Maintenance - Scheduled laboratories, with fasting instructions, to monitor medication effects on liver and kidney function. - Review of immunization history revealed the patient is due for a tetanus vaccine, which was last administered in 2008. 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 - He plays drums and sings as part of his musical expertise. Patient Instructions - Complete fasting labs as discussed; no eating for 10 hours before the test. - Clinics open weekends for lab tests, but not on Sundays. - tetanus booster given Orders: Orders Comprehensive [place]. Panel Fast Today F41.1 - Generalized anxiety disorder, G43.009 - Migraine without aura, not intractable, without status migrainosus, L70.9 - Acne, unspecified, Z00.01 - Encounter for general adult medical examination with abnormal findings, Z28.39 - Other underimmunization status Lipid Panel Today F41.1 - Generalized anxiety disorder, G43.009 - Migraine without aura, not intractable, without status migrainosus, L70.9 - Acne, unspecified, Z00.01 - Encounter for general adult medical examination with abnormal findings, Z28.39 - Other underimmunization status TSH reflex Free T4 Today F41.1 - Generalized anxiety disorder, G43.009 - Migraine without aura, not intractable, without status migrainosus, L70.9 - Acne, unspecified, Z00.01 - Encounter for general adult medical examination with abnormal findings, Z28.39 - Other underimmunization status TDaP Immunization Today Z23 - Encounter for immunization Complete Blood Count Auto Diff Today F41.1 - Generalized anxiety disorder, G43.009 - Migraine without aura, not intractable, without status migrainosus, L70.9 - Acne, unspecified, Z00.01 - Encounter for general adult medical examination with abnormal findings, Z28.39 - Other underimmunization status
[2025-01-02 12:43] VITALS: BP 94/60; PULSE 83; RESP 15; TEMP 36.7; O2SAT 98; BMI 22.7
== END 2025-01-02 13:02 | disposition home or self-care (01) ==
LOC: HO.HMCC 12:29
PROVIDERS: PCP Internal Medicine; Visit Provider Internal Medicine
DX: Z00.01 Encounter for general adult medical examination with abnormal findings (principal); Z28.39 Other underimmunization status; F41.1 Generalized anxiety disorder; L70.9 Acne, unspecified; G43.009 Migraine without aura, not intractable, without status migrainosus; Z23 Encounter for immunization

== ENCOUNTER → 2025-01-02 12:28 | Outpatient (BNVA) | payer OTHER, SELFPAY | PROVIDERS: PCP Internal Medicine; Visit Provider Internal Medicine | DX: Z00.01 Encounter for general adult medical examination with abnormal findings (principal); Z23 Encounter for immunization; F41.1 Generalized anxiety disorder; L70.9 Acne, unspecified; G43.009 Migraine without aura, not intractable, without status migrainosus; Z79.899 Other long term (current) drug therapy; Z28.39 Other underimmunization status | CPT/HCPCS: 90471; 90715 ==

== ENCOUNTER 2025-01-06 11:36 | Outpatient (REF) | payer OTHER, SELFPAY ==
[2025-01-06 13:25] LABS: MANUAL DIFF FLAG NO
[2025-01-06 13:28] LABS: Basophils Percent Auto 0.5 % (0-2); Eosinophils Absolute Auto 0.2 X10*3/uL (0.0-0.4); Eosinophils Percent Auto 5.1 % (0-4); Hematocrit 45.2 % (42.0-52.0); Hemoglobin 15.6 g/dl (14.0-18.0); Imm Gran Abs Auto 0.01 X10*3/uL (0.00-0.03); Imm Gran Pct Auto 0.2 % (0.0-0.4); Lymphocytes Absolute Auto 1.2 X10*3/uL (1.2-4.9); Lymphocytes Percent Auto 29.8 % (20-40); Mean Corpuscular HGB Conc 34.5 g/dl (31.0-36.0); Mean Corpuscular Hemoglobin 29.1 pg (27.0-33.0); Mean Corpuscular Volume 84.2 fL (80.0-98.0); Mean Platelet Volume 9.1 fL (9.4-12.4); Monocytes Absolute Auto 0.4 X10*3/uL (0.1-1.2); Monocytes Percent Auto 9.9 % (2-11); Neutrophils Absolute Auto 2.3 x10*3/uL (2.0-8.3); Neutrophils Percent Auto 54.5 % (45-73); Platelet Count 243 X10*3/uL (160-400); Red Blood Count 5.37 X10*6/uL (4.60-5.80); Red Cell Distribution Width 12.3 % (11.0-16.0); White Blood Count 4.1 X10*3/uL (4.8-10.8)
[2025-01-06 14:09] LABS: Alanine Aminotransferase 28 U/L (0-40); Albumin Level 4.6 g/dL (3.5-5.0); Alkaline Phosphatase 105 U/L (39-117); Anion Gap 10 (12-20); Aspartate Amino Transferase 28 U/L (5-37); Bilirubin Total 1.3 mg/dL (0.0-1.0); Blood Urea Nitrogen 12 mg/dL (9-16); Calcium 9.7 mg/dL (8.4-10.2); Carbon Dioxide 27 mmol/L (22-29); Chloride 107 mmol/L (96-108); Cholesterol 144 mg/dL (<200); Estimated Glomerular Filt Rate > 60; Glucose Fasting 71 mg/dL (60-99); HDL Cholesterol 51 mg/dL (>40); LDL Cholesterol Calculated 86 mg/dL (<100); Potassium 4.4 mmol/L (3.3-5.1); Sodium 140 mmol/L (135-145); Total Protein 7.5 g/dL (6.5-8.0); Triglycerides 37 mg/dL (<150)
[2025-01-06 14:23] LABS: TSH reflex Free T4 0.21 uIU/mL (0.32-4.0)
[2025-01-06 15:17] LABS: Free T4 (Free Thyroxine) 1.03 ng/dL (0.71-1.85)
== END 2025-01-06 11:37 | disposition home or self-care (01) ==
LOC: HO.HMGCLDS 11:36
PROVIDERS: PCP Internal Medicine; Visit Provider Internal Medicine
DX: Z00.01 Encounter for general adult medical examination with abnormal findings (principal); F41.1 Generalized anxiety disorder; Z28.39 Other underimmunization status; G43.009 Migraine without aura, not intractable, without status migrainosus; L70.9 Acne, unspecified
CPT/HCPCS: 36415; 80053; 80061; 84439; 84443; 85025

== ENCOUNTER 2025-01-11 08:15 | Outpatient (AMB) | payer OTHER, SELFPAY ==
--- NOTE | 2025-01-11 08:29 | MHC.PC.OV ---
Intake Visit Reasons: Discuss Labs Allergies No Known Allergies Allergy (Verified 01/02/25 12:40) Medication List - Last Reconciled 01/11/25 by Kellie Duenas MD alprazolam 0.25 mg PO DAILY PRN fluoxetine 40 mg PO DAILY Tobacco use date assessed: 01/02/25 Dental Screening Dental Screen Date: 01/11/25 Did you have a dental visit in the last 12 months?: Yes Did you have a dental problem in the last 6 months where you did not have access to dental care?: No Was dental information given to patient?: Patient has dentist HPI Discuss Labs HPI Details History - The patient is a 29-year-old male presenting with abnormal lab test follow-up. - Thyroid function tests indicated hyperthyroidism, with a TSH of 0.21 and free T4 of 1.03. - Leukopenia was noted with a slightly low white count; however, it was normal in the previous year. - Electrolytes and kidney function showed normal results. - Total bilirubin is 1.3 - Cholesterol levels are well-controlled with an LDL of 86. - The patient's liver enzymes were reported as normal. Problem List - Hyperthyroidism - Leukopenia - high T bili Patient Instructions - Repeat thyroid function tests in a couple of weeks. - No fasting is required before repeating the tests. - Go to the lab on Wednesday morning for the blood test repeat. - Follow-up with results from the repeat tests after completion. Review of Systems - General: No fever no chills - Neurological: No headaches no dizziness - Ear nose throat: No sore throat no hearing difficulty no ear pain - Cardiovascular: No syncope, no chest pain, no palpitations - Gastrointestinal: No nausea vomiting or diarrhea - Endocrine: No polyuria polydipsia no heat intolerance - Genitourinary: No dysuria , no blood in urine [facility] Medical History Depression Surgical History No pertinent past surgical history Family History Father Hypertension Substance use disorder Mental health disorder Maternal Grandmother Cancer Substance use disorder Paternal Grandmother Depression Mental health disorder Maternal Aunt Substance use disorder Social History Housing: House Patient Tobacco Use Status: Never used Tobacco e-Cigarette/Vaping Use: Never Used service: No Current occupational status: employed Current occupation: teacher, [employer] Current occupational exposures/hazards: No Cognitive needs: No Hearing needs: No Vision needs: No Questionnaire Thrive Questionnaire Date Thrive assessed: 10/27/24 AUDIT C Alcohol Use Questionnaire (AUDIT-C) 1. How often do you have a drink containing alcohol?: Monthly or less 2. How many drinks containing alcohol do you have on a typical day when you are drinking?: 1 or 2 3. How often do you have six or more drinks on one occasion?: Never Total Score: 1 Score Reviewed/Action Taken: Yes DARIANA-7 AMB Questionnaire DARIANA-7 Date DARIANA - 7 assessed: 10/27/24 Source: Developed by Drs. Richie Cali, Karely Mclaughlin, Davon West and colleagues, with an educational veronica from [employer]. Physical exam (Primary Care) Tobacco/Smoking Status: Tobacco use Status Tobacco use date assessed 01/02/25 01/02/25 12:42 Patient Tobacco Use Status Never used Tobacco 01/02/25 12:42 e-Cigarette/Vaping Use Never Used 01/02/25 12:42 Thrive Assessment: Date of Thrive Assessment Date Thrive assessed 10/27/24 01/02/25 12:42 Telehealth Telehealth Telehealth Platform: [facility] Location of provider rendering services: practice address Location of patient: address on file Patient Identification confirmed using: Name, : Yes Telehealth method: voice only Patient verbally consented to treatment: Yes Patient verbally consented to billing insurance company: Yes Patient informed of any privacy concerns related to visit: Yes Minutes spent on Phone/Video with Pt.: 13 Coding Level of Care Code Tele Est Pt Level 3 (08690) Diagnoses Total bilirubin, elevated R17 Other neutropenia D70.8 Neutropenia type: other Low TSH level R79.89 Assessment & Plan Assessment & Plan (1) Total bilirubin, elevated: Code(s): R17 - Unspecified jaundice Category: Medical (2) Neutropenia: Code(s): D70.9 - Neutropenia, unspecified Category: Medical Qualifiers: Neutropenia type: other Qualified Code(s): D70.8 - Other neutropenia (3) Low TSH level: Code(s): R79.89 - Other specified abnormal findings of blood chemistry Category: Medical Plan History - The patient is a 29-year-old male presenting with abnormal lab test follow-up. - Thyroid function tests indicated hyperthyroidism, with a TSH of 0.21 and free T4 of 1.03. - Leukopenia was noted with a slightly low white count; however, it was normal in the previous year. - Electrolytes and kidney function showed normal results. - Total bilirubin is 1.3 - Cholesterol levels are well-controlled with an LDL of 86. - The patient's liver enzymes were reported as normal. Problem List - Hyperthyroidism - Leukopenia - high T bili Patient Instructions - Repeat thyroid function tests in a couple of weeks. - No fasting is required before repeating the tests. - Go to the lab on Wednesday morning for the blood test repeat. - Follow-up with results from the repeat tests after completion. Orders: Orders TSH reflex Free T4 2 Days D70.9 - Neutropenia, unspecified, R17 - Unspecified jaundice, R79.89 - Other specified abnormal findings of blood chemistry Thyroglobulin Antibodies 2 Days D70.9 - Neutropenia, unspecified, R17 - Unspecified jaundice, R79.89 - Other specified abnormal findings of blood chemistry Liver Panel 2 Days D70.9 - Neutropenia, unspecified, R17 - Unspecified jaundice, R79.89 - Other specified abnormal findings of blood chemistry Complete Blood Count Auto Diff 2 Days D70.9 - Neutropenia, unspecified, R17 - Unspecified jaundice, R79.89 - Other specified abnormal findings of blood chemistry
== END 2025-01-11 08:37 | disposition home or self-care (01) ==
LOC: HO.HMCC 08:15
PROVIDERS: PCP Internal Medicine; Visit Provider Internal Medicine
DX: R17 Unspecified jaundice (principal); D70.8 Other neutropenia; R79.89 Other specified abnormal findings of blood chemistry

== ENCOUNTER → 2025-01-11 08:15 | Outpatient (BNVA) | payer OTHER, SELFPAY | PROVIDERS: PCP Internal Medicine; Visit Provider Internal Medicine ==

== ENCOUNTER 2025-01-13 11:52 | Outpatient (REF) | payer OTHER, SELFPAY ==
[2025-01-13 13:28] LABS: MANUAL DIFF FLAG NO
[2025-01-13 13:32] LABS: Basophils Percent Auto 0.5 % (0-2); Eosinophils Absolute Auto 0.2 X10*3/uL (0.0-0.4); Eosinophils Percent Auto 5.6 % (0-4); Hemoglobin 15.8 g/dl (14.0-18.0); Imm Gran Abs Auto 0.01 X10*3/uL (0.00-0.03); Imm Gran Pct Auto 0.2 % (0.0-0.4); Lymphocytes Absolute Auto 1.3 X10*3/uL (1.2-4.9); Mean Corpuscular HGB Conc 33.6 g/dl (31.0-36.0); Mean Corpuscular Hemoglobin 28.8 pg (27.0-33.0); Mean Corpuscular Volume 85.6 fL (80.0-98.0); Mean Platelet Volume 9.2 fL (9.4-12.4); Monocytes Absolute Auto 0.4 X10*3/uL (0.1-1.2); Monocytes Percent Auto 9.6 % (2-11); Neutrophils Absolute Auto 2.3 x10*3/uL (2.0-8.3); Neutrophils Percent Auto 54.1 % (45-73); Platelet Count 254 X10*3/uL (160-400); Red Blood Count 5.49 X10*6/uL (4.60-5.80); Red Cell Distribution Width 12.3 % (11.0-16.0); White Blood Count 4.3 X10*3/uL (4.8-10.8)
[2025-01-13 14:01] LABS: Alanine Aminotransferase 22 U/L (0-40); Albumin Level 4.7 g/dL (3.5-5.0); Alkaline Phosphatase 102 U/L (39-117); Aspartate Amino Transferase 28 U/L (5-37); Bilirubin Direct 0.4 mg/dL (0.0-0.5); Bilirubin Total 1.4 mg/dL (0.0-1.0); Total Protein 7.6 g/dL (6.5-8.0)
[2025-01-13 14:17] LABS: TSH reflex Free T4 0.17 uIU/mL (0.32-4.0)
[2025-01-13 14:56] LABS: Free T4 (Free Thyroxine) 1.06 ng/dL (0.71-1.85)
[2025-01-15 21:52] LABS: Thyroglobulin Antibodies <1 IU/mL (< or = 1)
== END 2025-01-13 11:53 | disposition home or self-care (01) ==
LOC: HO.HMGCLDS 11:52
PROVIDERS: PCP Internal Medicine; Visit Provider Internal Medicine
DX: D70.9 Neutropenia, unspecified (principal); R17 Unspecified jaundice; R94.6 Abnormal results of thyroid function studies
CPT/HCPCS: 36415; 80076; 84439; 84443; 85025; 86800

== ENCOUNTER 2025-01-18 08:53 | Outpatient (AMB) | payer OTHER, SELFPAY ==
--- NOTE | 2025-01-18 09:44 | A.OFFPC_ITS ---
Intake Visit Reasons: Discuss Labs Allergies No Known Allergies Allergy (Verified 01/02/25 12:40) Medication List - Last Reconciled 01/18/25 by Kellie Duenas MD alprazolam 0.25 mg PO DAILY PRN fluoxetine 40 mg PO DAILY Tobacco use date assessed: 01/18/25 Dental Screening Dental Screen Date: 01/18/25 Did you have a dental visit in the last 12 months?: No Did you have a dental problem in the last 6 months where you did not have access to dental care?: No Was dental information given to patient?: Patient has dentist HPI Discuss Labs HPI Details History - The patient is a 29-year-old male pres enting with concerns related to thyroid function. - Initial laboratory tests revealed abno rmal thyroid levels, suggesting hyperthyroidism. - Repeat laboratory investigation confir med persistent abnormalities in thyroid function. - Patient denies experiencing palpitatio ns or a rapid heartbeat, common symptoms associated with hyperthyroidism. - Discussion included potential causes s uch as a hyperfunctioning thyroid nodule or Graves' disease, an autoimmune condition. - Patient has not reported changes commo nly associated with caffeine intake or lifestyle factors that might exacerbate symptoms. Problem List - Hyperthyroidism Patient Instructions - Avoid excessive caffeine consumption a s it may worsen symptoms like a fast heartbeat and anxiety. - Follow up with horticultural services supervisor as plan corey. Review of Systems - General: No fever no chills - Neurological: No headaches no dizziness - Ear nose throat: No sore throat no hearing difficulty no ear pain - Cardiovascular: No syncope, no chest pain, no palpitations - Gastrointestinal: No nausea vomiting or diarrhea - Endocrine: No polyuria polydipsia no heat intolerance PFSH Medical History Depression Surgical History No pertinent past surgical history Family History Father Hypertension Substance use disorder Mental health disorder Maternal Grandmother Cancer Substance use disorder Paternal Grandmother Depression Mental health disorder Maternal Aunt Substance use disorder Social History Housing: House Patient Tobacco Use Status: Never used Tobacco e-Cigarette/Vaping Use: Never Used service: No Current occupational status: employed Current occupation: teacher, [employer] Current occupational exposures/hazards: No Cognitive needs: No Hearing needs: No Vision needs: No Questionnaire Thrive Questionnaire Date Thrive assessed: 10/27/24 AUDIT C Alcohol Use Questionnaire (AUDIT-C) 1. How often do you have a drink containing alcohol?: Monthly or less 2. How many drinks containing alcohol do you have on a typical day when you are drinking?: 1 or 2 3. How often do you have six or more drinks on one occasion?: Never Total Score: 1 Score Reviewed/Action Taken: Yes DARIANA-7 AMB Questionnaire DARIANA-7 Date DARIANA - 7 assessed: 10/27/24 Source: Developed by Drs. Richie Cali, Karely Mclaughlin, Davon West and colleagues, with an educational veronica from [employer]. Physical exam (Primary Care) Tobacco/Smoking Status: Tobacco use Status Tobacco use date assessed 01/18/25 01/18/25 09:44 Patient Tobacco Use Status Never used Tobacco 01/18/25 09:44 e-Cigarette/Vaping Use Never Used 01/18/25 09:44 Thrive Assessment: Date of Thrive Assessment Date Thrive assessed 10/27/24 01/18/25 09:44 Coding Level of Care Code Tele Est Pt Level 3 (23619) Diagnoses Hyperthyroidism E05.90 Assessment & Plan Assessment & Plan (1) Hyperthyroidism: Code(s): E05.90 - Thyrotoxicosis, unspecified without thyrotoxic crisis or storm Category: Medical Plan History - The patient is a 29-year-old male presenting with concerns related to thyroid function. - Initial laboratory tests revealed abnormal thyroid levels, suggesting hyperthyroidism. - Repeat laboratory investigation confirmed persistent abnormalities in thyroid function. - Patient denies experiencing palpitations or a rapid heartbeat, common symptoms associated with hyperthyroidism. - Discussion included potential causes such as a hyperfunctioning thyroid nodule or Graves' disease, an autoimmune condition. - Patient has not reported changes commonly associated with caffeine intake or lifestyle factors that might exacerbate symptoms. Problem List - Hyperthyroidism Patient Instructions - Avoid excessive caffeine consumption as it may worsen symptoms like a fast heartbeat and anxiety. - Follow up with horticultural services supervisor as planned. Orders: Orders US thyroid Today E05.90 - Thyrotoxicosis, unspecified without thyrotoxic crisis or storm Referrals Endocrinology Referral E05.90 - Thyrotoxicosis, unspecified without thyrotoxic crisis or storm
== END 2025-01-18 10:10 | disposition home or self-care (01) ==
LOC: HO.HMCC 08:53
PROVIDERS: PCP Internal Medicine; Visit Provider Internal Medicine
DX: E05.90 Thyrotoxicosis, unspecified without thyrotoxic crisis or storm (principal)

== ENCOUNTER → 2025-01-18 08:53 | Outpatient (BNVA) | payer OTHER, SELFPAY | PROVIDERS: PCP Internal Medicine; Visit Provider Internal Medicine ==

== ENCOUNTER 2025-02-13 13:21 | Outpatient (REF) | payer OTHER, SELFPAY ==
--- NOTE | ~2025-02-13 | US_ITS ---
EXAMINATION: US THYROID HISTORY: E05.90 - Thyrotoxicosis, unspecified without thyrotoxic crisis or storm TECHNIQUE: Real-time grayscale ultrasound imaging was performed and images were reviewed. COMPARISON: There are no prior studies available for comparison. FINDINGS: SIZE: The right thyroid lobe measures 6.0 x 1.9 x 2.4 cm. The left thyroid lobe measures 4.7 x 1.6 x 1.5 cm. The isthmus measures 4 mm. FLOW: Flow to the gland is normal. ECHOGENICITY: The echotexture of the gland is homogeneous. NODULES: No nodules are identified. US/US thyroid IMPRESSION: Unremarkable thyroid ultrasound. ACR TI-RADS Guidelines TR1 (0 points): Benign, No follow-up or biopsy required TR2 (2 points): Not Suspicious, No biopsy or follow up indicated TR3 (3 points): Mildly Suspicious, FNA if >= 2.5 cm, Follow if >= 1.5 cm TR4 (4-6 points): Moderately Suspicious, FNA if >= 1.5 cm, Follow if >= 1.0 cm TR5 (>=7 points): Highly Suspicious, FNA if >= 1.0 cm, Follow if >= 0.5 cm Electronically signed by: Richie Beth MD 02/13/2025 02:19 PM EDT
== END 2025-02-13 13:22 | disposition home or self-care (01) ==
LOC: HO.HMGCX 13:21
PROVIDERS: PCP Internal Medicine; Visit Provider Internal Medicine
DX: E05.90 Thyrotoxicosis, unspecified without thyrotoxic crisis or storm (principal)
CPT/HCPCS: 76536

== ENCOUNTER → 2025-02-13 13:22 | Outpatient (BNV) | payer OTHER, SELFPAY | PROVIDERS: PCP Internal Medicine; Visit Provider Radiology Diagnostic Radiology | DX: E05.90 Thyrotoxicosis, unspecified without thyrotoxic crisis or storm (principal) | CPT/HCPCS: 76536 ==

== ENCOUNTER 2025-03-19 14:34 | Outpatient (REF) | payer OTHER, SELFPAY ==
[2025-03-19 18:08] LABS: Free T4 (Free Thyroxine) 0.89 ng/dL (0.71-1.85); Thyroid Stimulating Hormone 0.64 uIU/mL (0.32-4.0)
== END 2025-03-19 14:35 | disposition home or self-care (01) ==
LOC: HO.LAB 14:34
PROVIDERS: PCP Internal Medicine; Visit Provider Student in an Organized Health Care Education/Training Program
DX: E05.90 Thyrotoxicosis, unspecified without thyrotoxic crisis or storm (principal); F41.9 Anxiety disorder, unspecified
CPT/HCPCS: 36415; 83520; 84439; 84443; 84445; 84480; 86376

== ENCOUNTER 2025-03-19 14:34 | Outpatient (AMB) | payer OTHER, SELFPAY ==
[2025-03-19 14:35] VITALS: BP 100/68; PULSE 60; O2SAT 97; BMI 22.7
--- NOTE | 2025-03-19 14:35 | MHC.OFFVIS ---
Vital Signs 03/19/25 14:35 Height 5 ft 7 in Weight 144 lb 13.499 oz BMI 22.7 BP 100/68 Blood Pressure Location Lt brachial Position Sitting Pulse 60 Pulse Source Pulse Oximeter Pulse Oximetry (%) 97 Oxygen Delivery Method Room Air Intake Visit Reasons: Thyrotoxicosis, unspecified without thyrotoxic cr Intake Note: New patient present today for Thyrotoxicosis, unspecified without thyrotoxic crisis or storm. Ground Products Director Required: No Accompanied by: Self / Same As Patient Allergies No Known Allergies Allergy (Verified 03/19/25 14:39) Medication List - Last Reconciled 03/19/25 by Linette Jewell MD alprazolam 0.25 mg PO DAILY PRN fluoxetine 40 mg PO DAILY HPI Comments Details: 30-year-old male coming in today for initial evaluation of subclinical hyperthyroidism. Chart review shows that he has had TSH levels ranging anywhere from 0.14-0.44 from [id number]. Free T4 has always been normal. Most recent labs done 01/13/2025 showed TSH was 0.17, which is low with normal free T4 of 1.06. Ultrasound of the thyroid 02/13/2025, I reviewed the images myself which showed a normal homogeneous thyroid gland with normal flow, with no discrete nodules. Patient currently denies diarrhea or constipation, hair loss, changes in appearance of eyes or vision changes, or dry skin. ? Reports heat intolerance over the past few months. some intermittent palpitations , 2-3 times in a month. some intermittent tremors. reports increased sweating. reports tiredness. feels sometimes more irritable.does have an anxiety disorder, medications keeping it under control. Lost 20 lbs over the past one or so year without any changes. Patient denies any difficulty swallowing, pain on swallowing or difficulty breathing.some intermittent hoarsenss. Patient denies any history of childhood neck radiation. Denies having ever used lithium, amiodarone or biotin supplements. Patient denies any family history of thyroid cancer. Mother had thyroid nodule. 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 Physical exam General: sitting comfortably in no acute distress HEENT: normocephalic/atraumatic, EOM intact, moist oral mucosa Neck: supple, symmetrical, no thyromegaly , Cardiac: normal heart sounds Pulm: normal breath sounds B/L, no added breath sounds Abd: not distended, no tenderness Extremities: no edema, no signs of myxedema, mild tremors noted Neuro: AAO x3, Speech: normal, no facial droop, moving all 4 extremities Laboratory Tests 12/22/22 01/19/23 12/28/23 11:50 12:34 11:02 WBC Neut % (Auto) Absolute Neuts (auto) AST ALT TSH 0.14 L 0.37 0.44 Free T4 0.93 Thyroglobulin Antibody <1 01/06/25 01/13/25 11:40 11:55 WBC 4.3 L Neut % (Auto) 54.1 Absolute Neuts (auto) 2.3 AST 28 ALT 22 TSH 0.21 L 0.17 L Free T4 1.03 1.06 Thyroglobulin Antibody <1 EXAMINATION: US THYROID 02/13/25 HISTORY: E05.90 - Thyrotoxicosis, unspecified without thyrotoxic crisis or storm TECHNIQUE: Real-time grayscale ultrasound imaging was performed and images were reviewed. COMPARISON: There are no prior studies available for comparison. FINDINGS: SIZE: The right thyroid lobe measures 6.0 x 1.9 x 2.4 cm. The left thyroid lobe measures 4.7 x 1.6 x 1.5 cm. The isthmus measures 4 mm. FLOW: Flow to the gland is normal. ECHOGENICITY: The echotexture of the gland is homogeneous. NODULES: No nodules are identified. US/US thyroid IMPRESSION: Unremarkable thyroid ultrasound. [facility] Medical History Depression Surgical History No pertinent past surgical history Family History Father Hypertension Substance use disorder Mental health disorder Maternal Grandmother Cancer Substance use disorder Paternal Grandmother Depression Mental health disorder Maternal Aunt Substance use disorder Social History Housing: House Patient Tobacco Use Status: Never used Tobacco e-Cigarette/Vaping Use: Never Used service: No Current occupational status: employed Current occupation: teacher, [employer] Current occupational exposures/hazards: No Cognitive needs: No Hearing needs: No Vision needs: No Physical Exam Vital Signs: Last Vital Signs Pulse 60 03/19/25 14:35 BP 100/68 03/19/25 14:35 Pulse Ox 97 03/19/25 14:35 Oxygen Delivery Method Room Air 03/19/25 14:35 BMI result Body Mass Index 22.7 Assessment & Plan Assessment & Plan (1) Subclinical hyperthyroidism: Code(s): E05.90 - Thyrotoxicosis, unspecified without thyrotoxic crisis or storm Category: Medical Plan: 30-year-old male here today for initial evaluation of subclinical hyperthyroidism. Chart review shows that he has had TSH levels ranging anywhere from 0.14-0.44 from [id number]. Free T4 has always been normal. Most recent labs done 01/13/2025 showed TSH was 0.17, which is low with normal free T4 of 1.06. Ultrasound of the thyroid 02/13/2025, I reviewed the images myself which showed a normal homogeneous thyroid gland with normal flow, with no discrete nodules. He does think he had a preceding viral infection on the time the labs were done, we will repeat extended thyroid panel. He denies biotin use. No recent contrast exposure. Otherwise he does not have any history of fractures, no history of ischaemic heart disease or arrhythmias, and he is less than age 65, all making him low risk for complications. His TSH is greater than 0.1 unusually that does not warrant treatment however he does have some nonspecific symptoms, some of these could be possibly due to hyperthyroidism. Hence we will further investigate with antibodies. Most likely differential is underlying autoimmune thyroid disease especially given that his ultrasound did not show any nodules. If his antibodies are negative, and his TSH has worsened or less than 0.1, I might consider getting a thyroid uptake and scan. Plan: -ordered TSH, free T4, total T3, TPO, TSH receptor and TSI antibodies -follow up in 6 weeks to discuss results, we will likely order another set of labs prior to follow up Plan I spent 45 minutes in reviewing the record, seeing the patient and documenting in the medical record. Orders: Orders Thyroid Stimulating Immunoglob Today E0 - Thyrotoxicosis, unspecified without thyrotoxic crisis or storm Triiodothyronine T3 Total Today E0 - Thyrotoxicosis, unspecified without thyrotoxic crisis or storm Thyrotropin Receptor Antibody Today E0 - Thyrotoxicosis, unspecified without thyrotoxic crisis or storm Thyroid Peroxidase Antibodies Today E0 - Thyrotoxicosis, unspecified without thyrotoxic crisis or storm Thyroid Stimulating Hormone Today E0 - Thyrotoxicosis, unspecified without thyrotoxic crisis or storm Free T4 (Free Thyroxine) Today E0 - Thyrotoxicosis, unspecified without thyrotoxic crisis or storm Coding Level of Care Code New Pt Level 4 (58676) Diagnoses Subclinical hyperthyroidism E0. Time Spent (min) 45
== END 2025-03-19 15:02 | disposition home or self-care (01) ==
LOC: HO.ENCR 14:34
PROVIDERS: PCP Internal Medicine; Visit Provider Student in an Organized Health Care Education/Training Program
DX: E05.90 Thyrotoxicosis, unspecified without thyrotoxic crisis or storm (principal)
CPT/HCPCS: 99204

== ENCOUNTER 2025-04-19 12:16 | Outpatient (REF) | payer OTHER, SELFPAY ==
[2025-04-19 14:23] LABS: Free T4 (Free Thyroxine) 0.97 ng/dL (0.71-1.85); Thyroid Stimulating Hormone 0.25 uIU/mL (0.32-4.0)
== END 2025-04-19 12:17 | disposition home or self-care (01) ==
LOC: HO.LAB 12:16
PROVIDERS: PCP Internal Medicine; Visit Provider Student in an Organized Health Care Education/Training Program
DX: R79.89 Other specified abnormal findings of blood chemistry (principal); Z13.29 Encounter for screening for other suspected endocrine disorder
CPT/HCPCS: 36415; 84439; 84443; 84480

== ENCOUNTER 2025-05-01 14:53 | Outpatient (AMB) | payer OTHER, SELFPAY ==
[2025-05-01 14:59] VITALS: BP 94/66; PULSE 58; O2SAT 98; BMI 22.8
--- NOTE | 2025-05-01 14:59 | MHC.OFFVIS ---
Vital Signs 05/01/25 14:59 Height 5 ft 7 in Weight 145 lb 11.609 oz BMI 22.8 BP 94/66 Blood Pressure Location Lt brachial Position Sitting Pulse 58 Pulse Source Pulse Oximeter Pulse Oximetry (%) 98 Oxygen Delivery Method Room Air Intake Visit Reasons: Thyrotoxicosis, unspecified without thyrotoxic cr Intake Note: Patient present today for Thyrotoxicosis, unspecified without thyrotoxic crisis or storm. Science Job Titles Required: No Accompanied by: Self / Same As Patient Allergies No Known Allergies Allergy (Verified 05/01/25 15:02) Medication List - Last Reconciled 05/01/25 by Linette Jewell MD alprazolam 0.25 mg PO DAILY PRN fluoxetine 40 mg PO DAILY HPI Comments Details: 30-year-old male coming in today for follow up of subclinical hyperthyroidism. HPI Chart review shows that he has had TSH levels ranging anywhere from 0.14-0.44 from 5215-9876. Free T4 has always been normal. Most recent labs done 01/13/2025 showed TSH was 0.17, which is low with normal free T4 of 1.06. Ultrasound of the thyroid 02/13/2025, I reviewed the images myself which showed a normal homogeneous thyroid gland with normal flow, with no discrete nodules. Patient currently denies diarrhea or constipation, hair loss, changes in appearance of eyes or vision changes, or dry skin. ? Reports heat intolerance over the past few months. some intermittent palpitations , 2-3 times in a month. some intermittent tremors. reports increased sweating. reports tiredness. feels sometimes more irritable.does have an anxiety disorder, medications keeping it under control. Lost 20 lbs over the past one or so year without any changes. Patient denies any difficulty swallowing, pain on swallowing or difficulty breathing.some intermittent hoarsenss. Patient denies any history of childhood neck radiation. Denies having ever used lithium, amiodarone or biotin supplements. Patient denies any family history of thyroid cancer. Mother had thyroid nodule. No history of CAD No fractures Does think he had a preceding viral infection around the time labs were done Smokes marijuana once a day Alcohol use: occasionally No tobacco use works as a career technology teacher K through 4. Interval history 03/19/2025: TSH 0.64, free T4 0.89, total T3 74, all of his labs had normalized except with a mildly low total T3. Undetectable TSI, TPO TSH receptor antibodies. Labs repeated 04/19/2025 again showed a mildly low TSH of 0.25, free T4 normal at 0.97, total T3 at 109. If anything use free T4 has been on the lower side of normal. Physical exam General: sitting comfortably in no acute distress HEENT: normocephalic/atraumatic, Neck: supple, symmetrical, no thyromegaly , Cardiac: normal heart sounds Pulm: normal breath sounds B/L, no added breath sounds Abd: not distended, no tenderness Extremities: no edema, no signs of myxedema, mild tremors noted Neuro: AAO x3, Speech: normal, no facial droop, moving all 4 extremities Laboratory Tests 12/22/22 01/19/23 12/28/23 11:50 12:34 11:02 WBC Neut % (Auto) Absolute Neuts (auto) AST ALT TSH 0.14 L 0.37 0.44 Free T4 0.93 Thyroglobulin Antibody <1 01/06/25 01/13/25 11:40 11:55 WBC 4.3 L Neut % (Auto) 54.1 Absolute Neuts (auto) 2.3 AST 28 ALT 22 TSH 0.21 L 0.17 L Free T4 1.03 1.06 Thyroglobulin Antibody <1 Laboratory Tests 03/19/25 04/19/25 15:24 12:23 TSH 0.64 0.25 L Free T4 0.89 0.97 Total T3 74 L 109 Thyroid Stim Immunoglob 127 Thyroid Peroxidase Ab 1 TSH Receptor Ab <1.00 EXAMINATION: US THYROID 02/13/25 HISTORY: E05.90 - Thyrotoxicosis, unspecified without thyrotoxic crisis or storm TECHNIQUE: Real-time grayscale ultrasound imaging was performed and images were reviewed. COMPARISON: There are no prior studies available for comparison. FINDINGS: SIZE: The right thyroid lobe measures 6.0 x 1.9 x 2.4 cm. The left thyroid lobe measures 4.7 x 1.6 x 1.5 cm. The isthmus measures 4 mm. FLOW: Flow to the gland is normal. ECHOGENICITY: The echotexture of the gland is homogeneous. NODULES: No nodules are identified. US/US thyroid IMPRESSION: Unremarkable thyroid ultrasound. [facility] Medical History (Updated 03/19/25 @ 14:58 by Linette Jewell MD) Subclinical hyperthyroidism Depression Surgical History No pertinent past surgical history Family History Father Hypertension Substance use disorder Mental health disorder Maternal Grandmother Cancer Substance use disorder Paternal Grandmother Depression Mental health disorder Maternal Aunt Substance use disorder Social History Housing: House Patient Tobacco Use Status: Never used Tobacco e-Cigarette/Vaping Use: Never Used service: No Current occupational status: employed Current occupation: teacher, [employer] Current occupational exposures/hazards: No Cognitive needs: No Hearing needs: No Vision needs: No Assessment & Plan Assessment & Plan (1) Subclinical hyperthyroidism: Code(s): E05.90 - Thyrotoxicosis, unspecified without thyrotoxic crisis or storm Category: Medical Plan: 30-year-old male here today for initial evaluation of subclinical hyperthyroidism. Chart review shows that he has had TSH levels ranging anywhere from 0.14-0.44 from 3623-8451. Free T4 has always been normal. Most recent labs done 01/13/2025 showed TSH was 0.17, which is low with normal free T4 of 1.06. Ultrasound of the thyroid 02/13/2025, I reviewed the images myself which showed a normal homogeneous thyroid gland with normal flow, with no discrete nodules. He does think he had a preceding viral infection on the time the labs were done, we will repeat extended thyroid panel. He denies biotin use. No recent contrast exposure. Otherwise he does not have any history of fractures, no history of ischaemic heart disease or arrhythmias, and he is less than age 65, all making him low risk for complications. His TSH is greater than 0.1 unusually that does not warrant treatment 03/19/2025: TSH 0.64, free T4 0.89, total T3 74, all of his labs had normalized except with a mildly low total T3. Undetectable TSI, TPO TSH receptor antibodies. Labs repeated 04/19/2025 again showed a mildly low TSH of 0.25, free T4 normal at 0.97, total T3 at 109. If anything use free T4 has been on the lower side of normal. At this point given age, degree of TSH, he is a low risk patient, and we will continue to monitor. At this time I will plan to see him back in November 2025 with repeat labs. Plan: -ordered TSH, free T4, total T3 to be done in November 2025 prior to follow up Plan See above Orders: Orders Free T4 (Free Thyroxine) 11/12/25 E05.90 - Thyrotoxicosis, unspecified without thyrotoxic crisis or storm Thyroid Stimulating Hormone 11/12/25 E05.90 - Thyrotoxicosis, unspecified without thyrotoxic crisis or storm Triiodothyronine T3 Total 11/12/25 E05.90 - Thyrotoxicosis, unspecified without thyrotoxic crisis or storm Patient Instructions: Do blood work a week prior to your follow up in November 2025, orders have been placed Coding Level of Care Code Est Pt Level 3 (79130) Diagnoses Subclinical hyperthyroidism E05.90
--- OUTSIDE RECORDS SUMMARY | 2025-05-01 16:17 | XMS_ITS ---
Author Name [facility] Organization Unknown Care Team Organization Name Specialty Phone Email Start Date End Jose reeder [facility] 05/01/2025
== END 2025-05-01 15:07 | disposition home or self-care (01) ==
LOC: HO.ENCR 14:54
PROVIDERS: PCP Internal Medicine; Visit Provider Student in an Organized Health Care Education/Training Program
DX: E05.90 Thyrotoxicosis, unspecified without thyrotoxic crisis or storm (principal)
CPT/HCPCS: 99213